=== PATIENT | female | born 1995 | race Caucasian/White ===

== ENCOUNTER 2021-08-05 19:59 | Inpatient (IN) | payer OTHER ==
[2021-08-05 20:38] VITALS: BMI 31.4
[2021-08-05] MEDS ORDERED: hydrALAZINE 20 MG/ML VIAL SLOW IVP PRN (20:46)
[2021-08-06] MEDS ORDERED: Promethazine HCl 25 MG/ML VIAL IM SCH (01:30)
[2021-08-06] MEDS ORDERED: Lactated Ringer's 500 ML IV SCH (01:30)
[2021-08-06] MEDS ORDERED: Morphine 4 MG/ML VIAL SLOW IVP SCH (01:30)
[2021-08-06] MEDS: Lactated Ringer's 1,000 ML IV SCH ×2 (02:55→13:59)
[2021-08-06 03:00] LABS: SARS-CoV-2 NAA Rapid Test Not Detected (NotDetected)
[2021-08-06] MEDS ORDERED: Ketorolac Tromethamine 30 MG/ML VIAL ONE (08:15)
[2021-08-06] MEDS ORDERED: Fentanyl 100 MCG/2 ML VIAL ONE (08:15)
[2021-08-06] MEDS ORDERED: Morphine PF 10 MG/10 ML VIAL ONE (08:15)
[2021-08-06] MEDS ORDERED: Oxytocin 10 UNITS/ML VIAL ONE (08:15)
[2021-08-06] MEDS ORDERED: Dexamethasone 4 mg/ml Vial ONE ×2 (08:15→08:16)
[2021-08-06] MEDS ORDERED: Ondansetron PF 4 MG/2 ML Vial ONE (08:15)
[2021-08-06] MEDS ORDERED: Phenylephrine 10 MG/ML VIAL ONE (08:15)
[2021-08-06 08:23] LABS: Hemoglobin 12.6 g/dL (12.0-15.5); Mean Corpuscular HGB CONC 33.2 g/dL (32.0-36.0); Mean Corpuscular Hemoglobin 30.1 pg (27.0-33.0); Mean Corpuscular Volume 90.9 fl (81.6-98.3); Mean Platelet Volume 10.8 fl (7.4-10.4); Platelet Count 213 10x3/uL (150-450); RBC Distribution Width 13.3 % (11.5-14.5); Red Blood Cell (RBC) Count 4.18 10x6/uL (3.90-5.03)
[2021-08-06] MEDS ORDERED: PHENYLEPHRINE-NS 100 MCG/ML 10 ML SYRINGE ONE (08:44)
[2021-08-06] MEDS ORDERED: Atropine Sulfate 0.4 mg/1 ml Vial ONE (08:55)
[2021-08-06] MEDS ORDERED: Methylergonovine 0.2 MG/ML VIAL ONE (09:05)
[2021-08-06] MEDS ORDERED: Acetaminophen 325 MG TAB PO PRN (11:29)
[2021-08-06] MEDS ORDERED: HYDROcodone/Acetaminophen 5/325 mg Tablet PO PRN ×2 (11:29)
[2021-08-06] MEDS ORDERED: Promethazine HCl 25 MG/ML VIAL IM PRN ×2 (11:29→12:26)
[2021-08-06] MEDS ORDERED: Ondansetron PF 4 MG/2 ML Vial IVP PRN ×2 (11:29→12:26)
[2021-08-06] MEDS ORDERED: NS w/ Oxytocin 30 units 500 ML IV SCH (11:29)
[2021-08-06] MEDS ORDERED: Lanolin Ointment 7 GM TUBE TOP PRN (11:29)
[2021-08-06] MEDS ORDERED: diphenhydrAMINE 25 MG CAP PO PRN (11:29)
[2021-08-06] MEDS ORDERED: Bisacodyl 10 MG SUPP PR PRN (11:29)
[2021-08-06] MEDS ORDERED: Boostrix 0.5 ML (Tdap) VIAL IM ONE (11:29)
[2021-08-06] MEDS ORDERED: Simethicone Chewable 80 MG TAB PO PRN (11:29)
[2021-08-06] MEDS ORDERED: hydrALAZINE 20 MG/ML VIAL SLOW IVP PRN (11:29)
[2021-08-06] MEDS ORDERED: Docusate Calcium (SURFAK) 240 MG CAP PO SCH (12:00)
[2021-08-06] MEDS ORDERED: Ferrous Sulfate 325 MG TAB PO SCH (12:00)
[2021-08-06] MEDS ORDERED: Prenatal Vitamin 1 TAB PO SCH (12:00)
[2021-08-06] MEDS ORDERED: Meperidine HCl/PF 25 MG/ML VIAL SLOW IVP PRN (12:26)
[2021-08-06] MEDS ORDERED: Fentanyl 100 MCG/2 ML VIAL SLOW IVP PRN (12:26)
[2021-08-06] MEDS ORDERED: Hydrocerin (Eucerin) Cream 120 gm Jar TOP PRN (12:26)
[2021-08-06] MEDS ORDERED: Ondansetron HCl/PF 4 MG/2 ML Vial IVP PRN (12:26)
[2021-08-06] MEDS ORDERED: diphenhydrAMINE 50 MG/ML VIAL IVP PRN (12:26)
[2021-08-06] MEDS ORDERED: Naloxone HCl 0.4 mg/ml Vial IV PRN (12:26)
[2021-08-06] MEDS ORDERED: Naloxone HCl 0.4 mg/ml Vial IVP PRN ×2 (12:26)
[2021-08-06] MEDS ORDERED: Promethazine HCl 25 MG SUPP PR PRN (12:26)
[2021-08-06] MEDS ORDERED: Communication Order-Pharmacy FS SCH (12:30)
[2021-08-06] MEDS ORDERED: Ibuprofen 800 MG TAB PO SCH (14:00)
[2021-08-06] MEDS: Ketorolac Tromethamine 30 MG/ML VIAL IVP SCH ×2 (14:25→20:31)
[2021-08-06 17:43] LABS: Syphilis Antibody Nonreactive (Nonreactive); Syphilis Antibody Index 0.03 S/CO (<1.00 Non-Reactive)
[2021-08-06 17:44] LABS: Hep B Surf Ag Non-Reactive S/CO (NonReactive)
[2021-08-06 17:49] LABS: HBSAg Index 0.19 S/CO (0-0.99)
[2021-08-06] MEDS: Docusate Calcium (SURFAK) 240 MG CAP PO SCH (20:31)
[2021-08-06] MEDS: Ferrous Sulfate 325 MG TAB PO SCH (22:42)
[2021-08-07] MEDS ORDERED: HYDROcodone/Acetaminophen 5/325 mg Tablet PO PRN ×2 (00:30)
[2021-08-07] MEDS: Ketorolac Tromethamine 30 MG/ML VIAL IVP SCH ×2 (04:24→08:52)
[2021-08-07 05:00] LABS: Hemoglobin 11.2 g/dL (12.0-15.5); Mean Corpuscular Volume 90.4 fl (81.6-98.3); Red Blood Cell (RBC) Count 3.66 10x6/uL (3.90-5.03); White Blood Cell (WBC) Count 15.4 10x3/uL (3.5-10.5)
[2021-08-07 05:01] LABS: Mean Corpuscular HGB CONC 33.8 g/dL (32.0-36.0); Mean Corpuscular Hemoglobin 30.6 pg (27.0-33.0); Mean Platelet Volume 10.1 fl (7.4-10.4); Platelet Count 194 10x3/uL (150-450); RBC Distribution Width 13.4 % (11.5-14.5)
[2021-08-07] MEDS: Ferrous Sulfate 325 MG TAB PO SCH ×2 (09:01→20:09)
[2021-08-07] MEDS: Docusate Calcium (SURFAK) 240 MG CAP PO SCH ×2 (09:07→21:34)
[2021-08-07] MEDS: Prenatal Vitamin 1 TAB PO SCH (09:07)
[2021-08-07] MEDS: Ibuprofen 800 MG TAB PO SCH ×2 (13:46→21:33)
[2021-08-08] MEDS: Ibuprofen 800 MG TAB PO SCH (05:49)
[2021-08-08 07:49] VITALS: TEMP 98.6
[2021-08-08] MEDS: Ferrous Sulfate 325 MG TAB PO SCH (08:57)
[2021-08-08] MEDS: Docusate Calcium (SURFAK) 240 MG CAP PO SCH (09:06)
[2021-08-08] MEDS: Prenatal Vitamin 1 TAB PO SCH (09:06)
[2021-08-08 11:17] VITALS: BP 111/69
== END 2021-08-08 14:11 | disposition home or self-care (01) | DRG 788 ==
LOC: CSHLD/OP 19:59 → CSHLD 08-06 01:54 → OBSVTOIN 08-06 01:54 → CSHPED 08-06 12:05
PROVIDERS: ADMIT Obstetrics & Gynecology; ATTEND Obstetrics & Gynecology
PROC: 10D00Z1 Extraction of Products of Conception, Low, Open Approach (ICD-10-PCS; principal; 2021-08-06)
DX: O76 Abnormality in fetal heart rate and rhythm complicating labor and delivery (principal); Z37.0 Single live birth; Z3A.39 39 weeks gestation of pregnancy; Z20.822 Contact with and (suspected) exposure to COVID-19; O77.0 Labor and delivery complicated by meconium in amniotic fluid; O62.2 Other uterine inertia; Z79.899 Other long term (current) drug therapy
CPT/HCPCS: 36415; 51702; 76819; 82805; 85027; 86780; 86850; 86900; 86901; 87340; 96372; 96374; 96375; 99285; G0378; J0461; J1100; J1885; J2270; J2274; J2370; J2405; J2550; J2590; J3010; J7120; U0002

== ENCOUNTER 2022-07-04 14:25 | Outpatient (CLI) | payer BC ==
[2022-07-04 15:50] LABS: Hemoglobin 13.5 g/dL (12.0-15.5); Mean Corpuscular HGB CONC 35.1 g/dL (32.0-36.0); Mean Corpuscular Hemoglobin 30.8 pg (27.0-33.0); Mean Corpuscular Volume 87.7 fl (81.6-98.3); Mean Platelet Volume 9.8 fl (7.4-10.4); Platelet Count 243 10x3/uL (150-450); RBC Distribution Width 12.1 % (11.5-14.5); Red Blood Cell (RBC) Count 4.39 10x6/uL (3.90-5.03); White Blood Cell (WBC) Count 12.1 10x3/uL (3.5-10.5)
== END 2022-07-04 14:26 | disposition home or self-care (01) ==
LOC: CSHLAB 14:25
PROVIDERS: ATTEND Obstetrics & Gynecology
DX: Z01.812 Encounter for preprocedural laboratory examination (principal); Z20.822 Contact with and (suspected) exposure to COVID-19; O02.1 Missed abortion
CPT/HCPCS: 85027; 86850; 86900; 86901; 87811

== ENCOUNTER 2022-07-04 20:16 | Emergency (ER) | payer BC ==
[2022-07-04 21:19] LABS: #Basophils 0.1 10x3/uL (0.0-0.2); #Eosinphils 0.1 10x3/uL (0.0-0.5); #Monocytes 1.1 10x3/uL (0.0-1.1); #Neutrophils 11.8 10x3/uL (1.5-8.4); %Basophils 0.3 % (0.0-2.0); %Eosinophils 0.6 % (0.0-6.0); %Lymphocytes 15.2 % (18.0-47.0); %Monocytes 6.8 % (0.0-10.0); %Neutrophils 76.7 % (40.0-75.0); Hemoglobin 14.3 g/dL (12.0-15.5); Mean Corpuscular HGB CONC 35.1 g/dL (32.0-36.0); Mean Corpuscular Hemoglobin 30.3 pg (27.0-33.0); Mean Corpuscular Volume 86.2 fl (81.6-98.3); Mean Platelet Volume 9.6 fl (7.4-10.4); Platelet Count 251 10x3/uL (150-450); RBC Distribution Width 12.1 % (11.5-14.5); Red Blood Cell (RBC) Count 4.72 10x6/uL (3.90-5.03); White Blood Cell (WBC) Count 15.4 10x3/uL (3.5-10.5)
[2022-07-04 21:33] LABS: ALT (SGPT) 17 U/L (8-55); AST (SGOT) 15 U/L (5-34); Albumin 4.4 g/dL (3.5-5.0); Alkaline Phosphatase 56 U/L (40-110); Anion Gap 15 mmol/L (10-20); BUN (Urea Nitrogen) 8 mg/dL (7.0-18.7); Calc. Creatinine Clearance 0 mL/min (70-130); Calcium 9.2 mg/dL (7.8-10.44); Carbon Dioxide 20 mmol/L (22-29); Chloride 107 mmol/L (98-107); Estimated GFR 123; Globulin 3.1 g/dL (2.4-3.5); Glucose 103 mg/dL (70-105); Potassium 3.7 mmol/L (3.5-5.1); Protein, Total 7.5 g/dL (6.0-8.3); Sodium 138 mmol/L (136-145)
== END 2022-07-04 23:50 | disposition home or self-care (01) ==
LOC: CSHERS 20:16
DX: O03.4 Incomplete spontaneous abortion without complication (principal)
CPT/HCPCS: 80053; 85027; 86850; 86900; 86901; 87811; 99284

== ENCOUNTER 2023-09-04 05:24 | Inpatient (IN) | payer BC ==
[2023-09-03 11:07] LABS: Hematocrit 37.1 % (34.9-44.5); Hemoglobin 12.9 g/dL (12.0-15.5); Platelet Count 192 10x3/uL (150-450)
[2023-09-03 11:47] LABS: Syphilis Antibody Nonreactive (Nonreactive); Syphilis Antibody Index 0.04 S/CO (<1.00 Non-Reactive)
[2023-09-03 11:49] LABS: HBSAg Index 0.16 S/CO (0-0.99); Hep B Surf Ag Non-Reactive S/CO (NonReactive)
[2023-09-04 05:54] VITALS: BMI 31.4
[2023-09-04] MEDS: Lactated Ringer's 1,000 ML IV SCH ×2 (05:55→19:20)
[2023-09-04] MEDS ORDERED: Famotidine/PF 20 mg/2ml Vial SLOW IVP PRN (05:57)
[2023-09-04] MEDS ORDERED: Bicitra 30 ML UDCUP PO PRN (05:57)
[2023-09-04] MEDS ORDERED: Ondansetron PF 4 MG/2 ML Vial IVP PRN ×4 (05:57→16:31)
[2023-09-04] MEDS ORDERED: CEFAZOLIN 2 GM in Sodium Chloride 0.9% 100 ML IVPB SCH (05:57)
[2023-09-04] MEDS ORDERED: Promethazine HCl 25 MG/ML VIAL IM PRN ×2 (05:57→07:04)
[2023-09-04] MEDS ORDERED: hydrALAZINE 20 MG/ML VIAL SLOW IVP PRN ×2 (05:57→16:31)
[2023-09-04] MEDS ORDERED: Oxytocin 30 units/NS 500 ML 500 ML IV SCH (06:00)
[2023-09-04] MEDS ORDERED: Ondansetron PF 4 MG/2 ML Vial ONE (06:45)
[2023-09-04] MEDS ORDERED: Dexamethasone 4 mg/ml Vial ONE (06:45)
[2023-09-04] MEDS ORDERED: Oxytocin 10 UNITS/ML VIAL ONE ×2 (06:45→08:17)
[2023-09-04] MEDS ORDERED: Morphine PF 10 MG/10 ML VIAL ONE (06:45)
[2023-09-04] MEDS ORDERED: Phenylephrine 40 MG/NS 250 ML 250 ML ONE (06:45)
[2023-09-04] MEDS ORDERED: Ketorolac Tromethamine 30 MG/ML VIAL ONE (06:45)
[2023-09-04] MEDS ORDERED: Metoclopramide HCl 10 MG/2 ML VIAL ONE (06:45)
[2023-09-04] MEDS ORDERED: fentaNYL 50 mcg/mL 1 mL Vial SLOW IVP PRN (07:04)
[2023-09-04] MEDS ORDERED: Naloxone HCl 0.4 mg/ml Vial IVP PRN ×2 (07:04)
[2023-09-04] MEDS ORDERED: Morphine 4 MG/ML VIAL SLOW IVP PRN (07:04)
[2023-09-04] MEDS ORDERED: Promethazine HCl 25 MG SUPP PR PRN (07:04)
[2023-09-04] MEDS ORDERED: Naloxone HCl 0.4 mg/ml Vial IV PRN (07:04)
[2023-09-04] MEDS ORDERED: Meperidine HCl/PF 25 MG/ML VIAL SLOW IVP PRN (07:04)
[2023-09-04] MEDS ORDERED: diphenhydrAMINE 50 MG/ML VIAL IVP PRN (07:04)
[2023-09-04] MEDS ORDERED: Moisturizing Cream (Eucerin) 113 GM JAR TOP PRN (07:04)
[2023-09-04] MEDS ORDERED: Communication Order-Pharmacy FS SCH (07:15)
[2023-09-04] MEDS ORDERED: Phytonadione Neonatal 1 MG/0.5 ML AMP ONE (07:33)
[2023-09-04] MEDS ORDERED: Erythromycin Base 0.5% Oint 1 GM TUBE ONE (07:34)
[2023-09-04] MEDS ORDERED: Famotidine/PF 20 mg/2ml Vial ONE (07:58)
[2023-09-04] MEDS ORDERED: Ketorolac Tromethamine 30 MG/ML VIAL IVP PRN (14:00)
[2023-09-04] MEDS ORDERED: Boostrix 0.5 ML (Tdap) VIAL (>/=7 yrs of age) IM ONE (16:31)
[2023-09-04] MEDS ORDERED: Lanolin Ointment 7 GM TUBE TOP PRN (16:31)
[2023-09-04] MEDS ORDERED: Simethicone Chewable 80 MG TAB PO PRN (16:31)
[2023-09-04] MEDS ORDERED: Bisacodyl 10 MG SUPP PR PRN (16:31)
[2023-09-04] MEDS ORDERED: diphenhydrAMINE 25 MG CAP PO PRN (16:31)
[2023-09-04] MEDS ORDERED: Acetaminophen 325 MG TAB PO PRN (16:31)
[2023-09-04] MEDS ORDERED: HYDROcodone/Acetaminophen 5/325 mg Tablet PO PRN ×4 (16:31→19:15)
[2023-09-04] MEDS ORDERED: Prenatal Vitamin 1 TAB PO SCH (16:45)
[2023-09-04] MEDS ORDERED: Ferrous Sulfate 325 MG TAB PO SCH (16:45)
[2023-09-04] MEDS: Docusate 100 MG CAP PO SCH ×3 (17:53→21:43)
[2023-09-04] MEDS: Ibuprofen 800 MG TAB PO SCH (18:09)
[2023-09-04] MEDS: Ferrous Sulfate 325 MG TAB PO SCH (21:42)
[2023-09-05] MEDS: Ibuprofen 800 MG TAB PO SCH ×3 (01:55→16:32)
[2023-09-05 04:12] LABS: Hematocrit 31.4 % (34.9-44.5); Hemoglobin 10.9 g/dL (12.0-15.5); Mean Corpuscular HGB CONC 34.7 g/dL (32.0-36.0); Mean Corpuscular Hemoglobin 31.4 pg (27.0-33.0); Mean Corpuscular Volume 90.5 fl (81.6-98.3); Mean Platelet Volume 10.3 fl (7.4-10.4); Platelet Count 166 10x3/uL (150-450); RBC Distribution Width 13.5 % (11.5-14.5); Red Blood Cell (RBC) Count 3.47 10x6/uL (3.90-5.03); White Blood Cell (WBC) Count 9.8 10x3/uL (3.5-10.5)
[2023-09-05 08:45] VITALS: BP 108/59; TEMP 98.4
[2023-09-05] MEDS: Docusate 100 MG CAP PO SCH (09:00)
[2023-09-05] MEDS ORDERED: Prenatal Vitamin 1 TAB PO SCH (09:00)
[2023-09-05] MEDS: Ferrous Sulfate 325 MG TAB PO SCH (16:35)
== END 2023-09-05 16:50 | disposition home or self-care (01) | DRG 788 ==
LOC: CSHLD 05:24 → CSHPP 15:30 → UNDODISIN 09-05 12:50
PROVIDERS: ADMIT Obstetrics & Gynecology; ATTEND Obstetrics & Gynecology
PROC: 10D00Z1 Extraction of Products of Conception, Low, Open Approach (ICD-10-PCS; principal; 2023-09-04)
DX: O34.211 Maternal care for low transverse scar from previous cesarean delivery (principal); Z3A.39 39 weeks gestation of pregnancy; Z37.0 Single live birth; D50.8 Other iron deficiency anemias; O90.81 Anemia of the puerperium
CPT/HCPCS: 51702; 85014; 85018; 85027; 85049; 86780; 86850; 86900; 86901; 87340; J1100; J1885; J2274; J2405; J2590; J2765; J7120; S0028